=== PATIENT | female | born 1950 | race Caucasian/White ===

== ENCOUNTER → 2019-06-26 | Outpatient (CLI) | payer OTHER | LOC: HYPER 10:42 | DX: S81.811A Laceration without foreign body, right lower leg, initial encounter (principal); M79.661 Pain in right lower leg; R40.0 Somnolence; R60.0 Localized edema; Z91.81 History of falling; X58.XXXA Exposure to other specified factors, initial encounter; T63.441A Toxic effect of venom of bees, accidental (unintentional), initial encounter; Y93.89 Activity, other specified; Y92.89 Other specified places as the place of occurrence of the external cause ==

== ENCOUNTER → 2019-07-02 | Outpatient (CLI) | payer OTHER | LOC: HYPER 07:48 | DX: S81.811D Laceration without foreign body, right lower leg, subsequent encounter (principal); L84 Corns and callosities; M19.90 Unspecified osteoarthritis, unspecified site; R40.0 Somnolence; Z91.81 History of falling; X58.XXXD Exposure to other specified factors, subsequent encounter ==

== ENCOUNTER → 2019-07-08 | Outpatient (CLI) | payer OTHER | LOC: HYPER 08:40 | DX: S81.811D Laceration without foreign body, right lower leg, subsequent encounter (principal); L84 Corns and callosities; M19.90 Unspecified osteoarthritis, unspecified site; R40.0 Somnolence; Z91.81 History of falling; X58.XXXD Exposure to other specified factors, subsequent encounter ==

== ENCOUNTER → 2019-07-29 | Outpatient (CLI) | payer OTHER | LOC: HYPER 07-22 12:58 | DX: S81.811D Laceration without foreign body, right lower leg, subsequent encounter (principal); L84 Corns and callosities; M19.90 Unspecified osteoarthritis, unspecified site; R40.0 Somnolence; Z91.81 History of falling; X58.XXXD Exposure to other specified factors, subsequent encounter ==

== ENCOUNTER → 2019-08-15 | Outpatient (CLI) | payer OTHER | LOC: HYPER 15:22 | DX: S81.811D Laceration without foreign body, right lower leg, subsequent encounter (principal); T14.8XXD Other injury of unspecified body region, subsequent encounter; L84 Corns and callosities; M19.90 Unspecified osteoarthritis, unspecified site; R40.0 Somnolence; W19.XXXD Unspecified fall, subsequent encounter ==